=== PATIENT | male | born 1960 | race Caucasian/White ===

== ENCOUNTER 2017-03-08 09:00 | Inpatient (IN) | payer BC ==
[2017-03-08 09:19] LABS: #Lymphocytes 1.9 thou/uL (1.20-3.40); #Monocytes 0.5 thou/uL (0.11-0.59); %Eosinophils 0.1 % (0.0-10.0); %Lymphocytes 11.1 % (21.0-51.0); %Monocytes 2.8 % (0.0-10.0); Hematocrit 48.7 % (42.0-52.0); Mean Platelet Volume 7.6 fL (7.4-10.4); Red Blood Cell (RBC) Count 5.87 mill/uL (4.70-6.10); White Blood Cell (WBC) Count 17.4 thou/uL (4.8-10.8)
[2017-03-08] MEDS ORDERED: Ondansetron HCl/PF 4 MG/2 ML Vial ONE ×2 (09:26→16:21)
[2017-03-08 09:43] LABS: ALT (SGPT) 17 U/L (8-55); AST (SGOT) 10 U/L (5-34); Alkaline Phosphatase 81 U/L (40-150); Anion Gap 11 mmol/L (10-20); BUN (Urea Nitrogen) 13 mg/dL (8.4-25.7); Bilirubin, Total 0.6 mg/dL (0.2-1.2); Calc. Creatinine Clearance 0 mL/min (70-130); Calcium 9.3 mg/dL (7.8-10.44); Carbon Dioxide 28 mmol/L (22-29); Chloride 100 mmol/L (98-107); Estimated GFR-MDRD Greater than 90; Globulin 3.4 g/dL (2.4-3.5); Lipase 41 U/L (8-78); Protein, Total 7.5 g/dL (6.0-8.3)
--- NOTE | 2017-03-08 10:18 | CT ---
ABDOMEN AND PELVIS CT WITH CONTRAST: INDICATION: Abdominal pain. COMPARISON: No prior comparison. FINDINGS: No consolidation at the imaged lung bases. There is cholelithiasis. No focal hepatic or splenic le kolby. No peripancreatic inflammation. Adrenal glands are unremarkable. There is a right renal cys t. There is a moderate-sized umbilical hernia which contains a loop of decompressed bowel. Associa meli fecalization and distention of small bowel is present to indicate associated mechanical obstruct ion. There is no free air. Aorta is normal in caliber. There is mild vascular calcification. Str eak artifact at the pelvis from bilateral hip hardware limits assessment. IMPRESSION: 1. Bowel containing umbilical hernia with associated moderate-grade obstruction. Recommend surgica l consultation. 2. Cholelithiasis. 3. Additional details as described above. Telephone call laced to ordering physician in the ER, Stuart Ceron, at the time of interpretation, 1004 hours, 04/08/17. CODE CR POS: [facility]
[2017-03-08 11:13] LABS: Troponin I Less than 0.010 ng/mL (< 0.028)
[2017-03-08 11:21] LABS: Bilirubin Negative (Negative); Blood, Urine Negative (Negative); Glucose, Urine (Dipstick) Negative (Negative); Ketone, Urine Negative (Negative); Nitrite Negative (Negative); Protein, Urine (Dipstick) Trace mg/dL (Neg-Trace); Urobilinogen 0.2 mg/dL (0.2-1.0)
[2017-03-08] MEDS ORDERED: Sodium Chloride 0.9% 1,000 ML IV SCH ×2 (12:09→12:45)
[2017-03-08] MEDS ORDERED: Ondansetron ODT 4 MG TAB SL PRN (12:09)
[2017-03-08] MEDS ORDERED: Ondansetron HCl/PF 4 MG/2 ML Vial IVP PRN ×2 (12:09→17:16)
[2017-03-08] MEDS ORDERED: Acetaminophen 1,000 MG in Premix Bag 1 BAG IVPB SCH (12:45)
[2017-03-08] MEDS ORDERED: Ketorolac Tromethamine 30 MG/ML VIAL IVP SCH (12:45)
[2017-03-08] MEDS ORDERED: Bupivacaine HCl 0.5%/Epinephrine 1:200,000/PF 30 ml Vial ONE (12:51)
[2017-03-08] MEDS ORDERED: Lidocaine 2% w/Epinephrine 1:200K 20 ML VIAL ONE (12:51)
--- NOTE | 2017-03-08 12:56 | HP ---
HISTORY OF PRESENT ILLNESS: Niko Cespedes is a 57-year-old male presenting with acute onset of rosie umbilical pain, mid abdominal pain, thinking he had food poisoning, developed nausea and vomiting, p resented in the emergency room, evaluated by Dr. Ceron. He was appreciated to have an incarcerate d umbilical hernia which he reduced. The patient had quite a bit of pain from this. The patient, h owtracy, felt somewhat better. He subsequently underwent a CAT scan revealing changes of a small-bow el obstruction with some persistence small bowel in the umbilical hernia defect. When I examined th e patient, the hernia is easily reducible. Abdomen is protuberant. He is obese. The patient is st ill having some pain, but not like he was having before. He has not had a bowel movement since yest erday morning. ALLERGIES: PENICILLIN. TOBACCO: None. ALCOHOL: None, except for rare use. HOME MEDICATIONS: Metoprolol p.o. b.i.d., Flovent b.i.d., hepatitis C medication he is taking. PAST MEDICAL HISTORY: Hepatitis C, on treatment medications under the direction of Dr. Hensley, GERD, hypertension. PAST SURGICAL HISTORY: Tonsillectomy, left knee arthroscopy, bilateral hip replacement. Colonoscop y in the last few weeks that was normal. No history of cirrhosis. REVIEW OF SYSTEMS: Ten point noncontributory. PHYSICAL EXAMINATION: VITAL SIGNS: Weight 137 kilograms, 71 heart rate, 22 respiratory rate, 99.8 degrees, blood pressure 179/103. GENERAL: Morbidly obese. LUNGS: Clear to auscultation. CARDIAC: Regular rate and rhythm without murmur or gallop. ABDOMEN: Soft, protuberant umbilical hernia easily reducible. EXTREMITIES: Unremarkable. Palpable pedal pulses. LABORATORY DATA: White count 17, hemoglobin 15. Sodium 135, BUN 13. GFR 90. Liver function tests are normal. EKG normal. ASSESSMENT AND PLAN: 1. Incarcerated hernia, status post reduction. He has distended stomach. His nausea and vomiting has resolved. Intestines are dilated on CAT scan immediately taken after reduction of his umbilical hernia. Plan continuation of IV fluids, n.p.o. preoperative antibiotics and repair of umbilical he rnia using mesh. Risk of infection, bleeding, reoperation, recurrence of hernia explained. He cons ents 2. Asymptomatic gallstones. This was seen on ultrasound obtained several months ago. He denies an y symptoms of biliary disease. 3. Gastroesophageal reflux disease. 4. Hypertension. 5. Hepatitis C, undergoing treatment under the direction of Dr. Hensley. 6. Status post colonoscopy a few weeks ago. 7. Normal liver function test.
[2017-03-08] MEDS ORDERED: Levofloxacin 500 mg/D5W 100 ml Premix Bag ONE (13:25)
[2017-03-08] MEDS ORDERED: Ketorolac Tromethamine 30 MG/ML VIAL ONE (13:25)
[2017-03-08] MEDS ORDERED: ISOVUE-370 76%-LOCM 1 ML ONE (14:58)
[2017-03-08] MEDS ORDERED: Fentanyl 100 MCG/2 ML VIAL ONE (16:03)
[2017-03-08] MEDS ORDERED: Glycopyrrolate 0.2 MG/ML 5 ML SYRINGE ONE (16:21)
[2017-03-08] MEDS ORDERED: Succinylcholine Chloride 20 MG/ML 10 ml SYRINGE FS ONE (16:21)
[2017-03-08] MEDS ORDERED: Dexamethasone 20 MG/5 ML VIAL ONE (16:21)
[2017-03-08] MEDS ORDERED: Lidocaine 1% PF 5 ML VIAL ONE (16:21)
[2017-03-08] MEDS ORDERED: Propofol 200 MG/20 ML VIAL ONE ×2 (16:21)
[2017-03-08] MEDS ORDERED: FLU VACC QS2017-18 36 mo. & older 0.5 ML SYRINGE IM ONE (17:00)
[2017-03-08] MEDS ORDERED: Promethazine HCl 25 MG/ML VIAL SLOW IVP PRN (17:16)
[2017-03-08] MEDS ORDERED: Promethazine HCl 25 MG/ML VIAL IM PRN (17:16)
[2017-03-08] MEDS ORDERED: traMADol HCl 50 MG TAB PO PRN ×2 (17:34)
[2017-03-08] MEDS ORDERED: Ketorolac Tromethamine 30 MG/ML VIAL IVP PRN (17:34)
[2017-03-08] MEDS: Acetaminophen 500 MG TAB PO SCH ×2 (19:37→23:44)
[2017-03-08] MEDS ORDERED: Enoxaparin Sodium 40 MG/0.4 ML SYRINGE SC SCH (21:00)
--- NOTE | 2017-03-08 21:57 | OP ---
DATE OF SURGERY: 03/08/2017 PREOPERATIVE DIAGNOSIS: Incarcerated umbilical hernia. POSTOPERATIVE DIAGNOSIS: Incarcerated umbilical hernia. PROCEDURE PERFORMED: PVP 8 cm mesh repair incarcerated umbilical hernia with preperitoneal reinforc ement of fascial closure, [id number] PDS suture used. SURGEON: Timur Cunha M.D. ANESTHESIA: General. Local 0.5% Marcaine with epinephrine, 30 mL, mixed with 2% Xylocaine, 10 mL t otal volume mixture used. PROCEDURE IN DETAIL: The patient was taken to the operating room where under general anesthesia, ab zamora was prepared with chloraprep, draped in routine fashion. Local anesthetic infiltrated into sk in and subcutaneous tissue about the operative site. Infraumbilical incision made and incision chu ied down through the skin and subcutaneous tissue and fascial edges dissected free, hernia mass inca rcerated and dissected free, reduced into the abdominal cavity. Preperitoneal space dissected free. An 8-cm PVP mesh placed in the preperitoneal and controlled with straps applied and the fascia emily roximated [id number] with interrupted sutures of 0 PDS pop offs incorporating the mesh into the fascial approximation, dividing the strap prior to tying the final knots. Approximated subcutaneou s tissues with 3-0 Monocryl, skin with subdermal 4-0 Monocryl and DermaGlue applied. The patient to lerated the procedure well.
[2017-03-09] MEDS: Acetaminophen 500 MG TAB PO SCH ×3 (06:02→17:42)
[2017-03-09] MEDS ORDERED: Polyethylene Glycol 3350 17 GM Packet PO SCH (09:00)
--- NOTE | 2017-03-09 20:02 | PRG ---
DATE OF SERVICE: 03/09/2017 SUBJECTIVE: Mr. Niko Cespedes is doing well today. Postoperatively, he is tolerating his diet. He louis s passed gas. He has not had a bowel movement. He is urinating without problems. Wound looks good . Umbilical skin near the incision is slightly bluish dark and he may have some necrosis. We will follow this. Surgical intervention is not warranted at this time. There is no evidence of infectio n. OBJECTIVE: VITAL SIGNS: Temperature 98.5 degrees, pulse 60, respirations 16 and blood pressure 159/93. LUNGS: Clear to auscultation. CARDIAC: Regular rate and rhythm without murmur or gallop. ABDOMEN: Soft, nontender and obese. EXTREMITIES: Unremarkable. ASSESSMENT AND PLAN: Doing well, post-hernia repair. We will plan discharge home. Follow up in my office in 2 weeks.
--- NOTE | 2017-03-10 03:33 | DIS ---
DATE OF ADMISSION: 03/08/2017 DATE OF DISCHARGE: 03/09/2017 DISCHARGE DIAGNOSES: Incarcerated umbilical hernia, obesity. ALLERGIES: PENICILLIN. DISCHARGE MEDICATIONS: Tylenol, Motrin over the counter p.r.n. pain, tramadol for breakthrough pain . OTHER DIAGNOSIS: Hepatitis C, undergoing treatment. HISTORY: A 57-year-old male presenting with abdominal pain to the ER. Clinically, he had incarcerat ed hernia reduced by Dr. Ceron. He underwent a CAT scan demonstrating umbilical hernia with laurent es of bowel obstruction. He had some residual bowel incarceration. The patient was taken to the op erating room, undergone repair with 8 cm PVP mesh, reinforcement of fascial closure. Postoperativel y, he tolerated his diet and was discharged home with followup in my office in 2 weeks. He will was h his umbilicus daily with soap and water and apply antibiotic ointment and Band-Aid as necessary. He may develop an eschar and he may develop wound and require secondary healing.
[2017-03-10 06:04] VITALS: BP 161/86; TEMP 98.8
[2017-03-13] MEDS ORDERED: Ibuprofen 600 MG TAB PO PRN (17:34)
== END 2017-03-09 20:35 | disposition home or self-care (01) | DRG 354 ==
LOC: ERS 09:00 → SURG B 10:37
PROVIDERS: ADMIT Specialist; ATTEND Specialist
PROC: 0WUF0JZ Supplement Abdominal Wall with Synthetic Substitute, Open Approach (ICD-10-PCS; principal; 2017-03-08)
DX: K42.0 Umbilical hernia with obstruction, without gangrene (principal); Z68.41 Body mass index [BMI] 40.0-44.9, adult; I10 Essential (primary) hypertension; E66.9 Obesity, unspecified; Z88.0 Allergy status to penicillin; B19.20 Unspecified viral hepatitis C without hepatic coma; K31.89 Other diseases of stomach and duodenum; K21.9 Gastro-esophageal reflux disease without esophagitis
CPT/HCPCS: 74177; 80053; 81003; 82553; 83690; 84484; 85025; 93005; 96361; 96374; C1781; J0131; J0670; J1100; J1650; J1885; J1956; J2001; J2270; J2405; J2704; J3010

== ENCOUNTER 2017-05-30 19:30 | Outpatient (CLI) | payer BC | END 2017-05-30 19:31 | disposition home or self-care (01) | LOC: SLEEPLAB 19:30 | PROVIDERS: ATTEND Family Medicine | DX: G47.33 Obstructive sleep apnea (adult) (pediatric) (principal) | CPT/HCPCS: 95811 ==